=== PATIENT | male | born 1950 | race Caucasian/White ===

== ENCOUNTER 2019-01-17 16:26 | Emergency (ER) | payer OTHER ==
[2019-01-17] MEDS ORDERED: DIPHTH,PERTUSS(ACELL),TET 0.5 ML DISP.SYRIN IM ONE ×2 (16:41→16:50)
[2019-01-17] MEDS ORDERED: ACETAMINOPHEN 325 MG TABLET (FP) PO ONE (16:41)
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
[2019-01-17 16:43] VITALS: BMI 28.3
[2019-01-17] MEDS ORDERED: ACETAMINOPHEN 325 MG TABLET (FP) ONE (16:50)
--- NOTE | 2019-01-17 16:56 | PDOC ---
Attending Attestation - Resident Resident Name: Lainey Reeves - ED Attending Attestation I have performed the following: I have examined & evaluated the patient, The case was reviewed & discussed with the resident, I agree w/resident's findings & plan, Exceptions are as noted - HPI HPI: 01/17/19 19:14 Reviewed Residents HPI - Physicial Exam PE: 01/17/19 19:14 Reviewed Residents PE - Medical Decision Making 01/17/19 19:14 Right knee laceration thoroughly irrigated and cleaned no evidence of foreign body an x-ray sutured with good approximation patient placed on antibiotics given contaminated wound Findings, the need for follow-up and strict return instructions discussed with patient.
[2019-01-17] MEDS ORDERED: AMOX TR/POT CLAV 875MG/125MG TABLETS (FP) PO ONE (18:03)
[2019-01-17] MEDS ORDERED: AMOX TR/POT CLAV 875MG/125MG TABLETS (FP) ONE (18:05)
[2019-01-17 18:24] VITALS: BP 144/98; PULSE 64; TEMP 97.7
== END 2019-01-17 18:24 | disposition home or self-care (01) ==
LOC: FER 16:26
PROC: 0HQKXZZ Repair Right Lower Leg Skin, External Approach (ICD-10-PCS; principal; 2019-01-17)
PROC: 3E0234Z Introduction of Serum, Toxoid and Vaccine into Muscle, Percutaneous Approach (ICD-10-PCS; 2019-01-17)
DX: S81.011A Laceration without foreign body, right knee, initial encounter (principal); V18.0XXA Pedal cycle driver injured in noncollision transport accident in nontraffic accident, initial encounter; Y93.55 Activity, bike riding; Y92.89 Other specified places as the place of occurrence of the external cause; I10 Essential (primary) hypertension; Z87.891 Personal history of nicotine dependence
CPT/HCPCS: 12004; 73562-TC-RT-FY; 90471; 90715; 99281-25

== ENCOUNTER 2019-01-27 09:59 | Emergency (ER) | payer OTHER | END 2019-01-27 10:57 | disposition home or self-care (01) | LOC: FER 09:59 ==

== ENCOUNTER 2019-01-30 10:07 | Emergency (ER) | payer OTHER | END 2019-01-30 11:20 | disposition home or self-care (01) | LOC: FER 10:07 ==

== ENCOUNTER 2024-06-01 17:53 | Emergency (ER) | payer OTHER ==
[2024-06-01 18:06] VITALS: BP 110/76; PULSE 58; RESP 18; TEMP 97.5; BMI 27.9
[2024-06-01] MEDS ORDERED: CEPHALEXIN MONOHYDRATE 500 MG CAPSULE (UD) ONE (18:32)
[2024-06-01] MEDS: CEPHALEXIN MONOHYDRATE 500 MG CAPSULE (UD) PO ONE (18:34)
== END 2024-06-01 18:55 | disposition home or self-care (01) ==
LOC: FER 17:53
PROC: 0W920ZZ Drainage of Face, Open Approach (ICD-10-PCS; principal; 2024-06-01)
DX: L02.01 Cutaneous abscess of face (principal)
CPT/HCPCS: 99283-25